=== PATIENT | female | born 1980 | race Caucasian/White ===

== ENCOUNTER 2024-06-21 18:45 | Emergency (ER) | payer OTHER ==
--- NOTE | 2024-06-21 20:38 | ED Physician Documentation ---
History of Present Illness - Stated complaint Stated Complaint: MIGRAINE/V/N - Chief complaint Chief Complaint: Neuro - History obtained from History obtained from: Patient - History of Present Illness Timing: How many days ago (3) Pain level max: 9 Pain level now: 9 - Additonal information Additional information: Patient is a 44-year-old female with a longstanding history of migraines. She states that this headache started about 3 days ago. She took her Fioricet, but the headache only lightens for a few hours, she states that it feels similar to prior migraines. Has had nausea and vomiting. Light sensitivity. No trauma. No fevers. No chills. Better with a dark room and eyes closed. Review of Systems Constitutional: denies: Fever, Chills Cardiac: denies: Chest pain / pressure Respiratory: denies: Dyspnea, Cough, Wheezing GI: reports: Nausea, Vomiting. 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 - Allergies Allergies/Adverse Reactions: Allergies Allergy/AdvReac Type Severity Reaction Status Date / Time No Known Drug Allergies Allergy Verified 06/21/24 20:44 - Social History Does the pt smoke?: Yes Smoking Status: Current every day smoker Does the pt drink ETOH?: No Does the pt have substance abuse?: No - Immunizations Immunizations are current?: Yes PD ED PE NORMAL - Vitals Vital signs reviewed: Yes - General General: Alert and 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, No acute distress - HEENT HEENT: Atraumatic, PERRL, EOMI, Ears normal, Moist mucous membranes - Neck Neck: Supple, no meningeal sign, No bony TTP - Cardiac Cardiac: RRR, Strong equal pulses - Respiratory Respiratory: No respiratory distress, Clear bilaterally - Abdomen Abdomen: Soft, Non tender, Non distended - Back Back: No spinal TTP - Derm Derm: Warm and dry - Extremities Extremities: No edema, No calf tenderness / cord - Neuro Neuro: Alert and 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, 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, No motor deficit, No sensory deficit, Normal speech Eye Opening: Spontaneous Motor: Obeys Commands Verbal: Oriented GCS Score: 15 - Psych Psych: Normal mood, Normal affect Results - Vitals Vitals: Vital Signs - 24 hr 06/21/24 06/21/24 06/21/24 19:04 20:40 21:53 Temperature 36.5 C Heart Rate 119 H 89 76 Respiratory 16 16 14 Rate Blood Pressure 145/86 H 105/72 109/76 O2 Saturation 100 100 99 Oxygen O2 Source Room air PD Medical Decision Making - ED course Complexity details: re-evaluated patient, considered differential, d/w patient ED course: Patient with a headache consistent with her usual migraine headache. She was given IV fluids, Toradol, droperidol and Benadryl. Headache resolved. Feels much better. No evidence of subarachnoid hemorrhage. No evidence of intracranial mass. Noted indication for emergent head CT. No focal neurological deficits. We will have her follow-up with her doctor for further care and return if she worsens. No evidence of meningitis, encephalitis. Patient counseled regarding signs and symptoms for which I believe and urgent re-evaluation would be necessary. Patient with good understanding of and agreement to plan and is comfortable going home at this time This document was made in part using voice recognition software. While efforts are made to proofread this document, sound alike and grammatical errors may occur. Departure - Departure Disposition: 01 Home, Self Care Clinical Impression: Migraine Qualifiers: Migraine type: unspecified Status migrainosus presence: without status migrainosus Intractability: not intractable Qualified Code(s): G43.909 - Migraine, unspecified, not intractable, without status migrainosus Condition: Good Instructions: ED Headache Migraine Follow-Up: your,doctor as needed [Other] Comments: Please follow-up with your doctor for further care. Go home and sleep tonight. Return if you worsen. Forms: PCP List Discharge Date/Time: 06/21/24 21:53
[2024-06-21] MEDS: KETOROLAC 30 MG/ML VIAL IVP STA ×2 (20:54→20:55)
[2024-06-21] MEDS: diphenhydrAMINE INJ 50 MG/ML VIAL IVP STA (20:54)
[2024-06-21] MEDS: SODIUM CHLORIDE 0.9% 1,000 ML IV STA (20:54)
[2024-06-21] MEDS: DROPERIDOL 5 MG/2 ML VIAL IVP STA (20:54)
[2024-06-21 21:56] VITALS: BP 109/76; O2SAT 99
== END 2024-06-21 21:53 | disposition home or self-care (01) ==
LOC: ED 18:45
DX: G43.909 Migraine, unspecified, not intractable, without status migrainosus (principal); F17.200 Nicotine dependence, unspecified, uncomplicated
CPT/HCPCS: 96374; 99283; J1200